=== PATIENT | male | born 1950 | race Caucasian/White ===

== ENCOUNTER → 2023-10-27 06:26 | Day surgery (SDC) | payer OTHER, SELFPAY | LOC: GI 06:26 | PROVIDERS: ATTENDING PHYSICIAN Internal Medicine Gastroenterology | DX: Z12.11 Encounter for screening for malignant neoplasm of colon (principal); Z86.010 Personal history of colon polyps; K57.30 Diverticulosis of large intestine without perforation or abscess without bleeding; K64.8 Other hemorrhoids | CPT/HCPCS: G0105 ==

== ENCOUNTER → 2024-02-02 20:10 | Outpatient (REF) | payer OTHER, SELFPAY | LOC: MRI 20:10 | PROVIDERS: ATTENDING PHYSICIAN Family Medicine | DX: R68.89 Other general symptoms and signs (principal); H53.9 Unspecified visual disturbance; I13.10 Hypertensive heart and chronic kidney disease without heart failure, with stage 1 through stage 4 chronic kidney disease, or unspecified chronic kidney disease; I11.9 Hypertensive heart disease without heart failure; I12.9 Hypertensive chronic kidney disease with stage 1 through stage 4 chronic kidney disease, or unspecified chronic kidney disease | CPT/HCPCS: 70553; A9575 ==

== ENCOUNTER 2024-02-11 14:03 | Emergency (ER) | payer OTHER, SELFPAY ==
[2024-02-11 14:05] VITALS: BP 168/79
--- NOTE | 2024-02-11 14:55 | ED.GENMED ---
History of Present Illness
General
Chief Complaint: Nose Bleed
Time Seen by Provider: 02/11/24 14:38
History of Present Illness
History of Present Illness:
Patient presents to the emergency department with right-sided epistaxis. Started about 2 hours ago. Notes that he may have rubbed his nose prior to this. Bleeding has slowed down at this time. Denies lightheadedness or dizziness
Past History
Past History
ED Past Medical History: CAD, HTN and Hypercholesterolemia
Social History
Tobacco: Former smoker
Alcohol: Occasional
Drug: None
Personal:
Phy Exam
Physical Exam
Physical Exam:
General: No acute distress
Head: NCAT
ENT: No active bleeding visualized. No prior passel of bleeding noted in the anterior nares bilaterally.
Neck, Normal in appearance, no swelling
Respiratory: No Respiratory distress
Abdomen: No distension
Ext: no edema
Neuro: FUENTES, AOx4
Psych: Normal affect
Skin: Normal color
Course
Vital Signs
Initial and Last Documented VS:
Initial Vital Signs
Temp Pulse Resp BP Pulse Ox
98.8 F 74 18 168/79 99
02/11/24 14:05 02/11/24 14:05 02/11/24 14:05 02/11/24 14:05 02/11/24 14:05
Last Documented Vital Signs
Temp Pulse Resp BP Pulse Ox
98.8 F 62 18 163/80 99
02/11/24 14:05 02/11/24 15:27 02/11/24 14:05 02/11/24 15:27 02/11/24 14:05
*Critical Care Note
Total Time (30-74mins, 75-104mins- exclusive of procedures): Not Applicable
ED Attending Note
ED Attending Note
ED Attending Note:
Bleeding has stopped at the time of the ER visit. No culprit vessel identifiable with nasal speculum bilaterally. Small amount of epinephrine soaked gauze placed in right nare to help vasoconstrict
monitored for 2 hours without rebleed
patient requesting discharge
return precautions given
-
Portions of this chart may have been created with voice recognition software.� Occasional wrong word or��sound alike� substitutions may have occurred due to the inherent limitations of voice recognition software.
Discharge Plan
Departure
Patient Disposition: Home (Routine Discharge)
Date of Disposition: 02/11/24
Time of Disposition: 16:20
Patient with high blood pressure during this ER visit?: Yes
Discharge Problem:
Epistaxis, Hypertension
Instructions: Nosebleeds (DC), BLOOD PRESSURE
Prescriptions:
No Action
cholecalciferol (vitamin D3) [Vitamin D3] 1,000 UNIT capsule
1,000 unit PO BID
nitroglycerin 0.4 MG tablet, sublingual
0.4 mg sublingual [id number] PRN (Reason: chest pain) Qty: 25 3RF
tamsulosin 0.4 MG capsule
0.4 mg PO HS Qty: 0 0RF
cranberry extract 200 MG capsule
400 mg PO HS Qty: 0 0RF
prednisone 20 MG tablet
20 mg PO DAILY
Patient Comments:
PATIENT START DATE 04/07/21 #21
glucosamine [id number] 1 EACH tablet
1 tab PO DAILY
irbesartan-hydrochlorothiazide 1 EACH tablet
1 tab PO HS
rosuvastatin 10 MG tablet
10 mg PO QPM
coenzyme [id number] 1 CAP capsule
1 cap PO QPM
acetaminophen [Tylenol Extra Strength] 500 MG tablet
500 mg PO Q4HPRN PRN (Reason: pain) 0RF
lidocaine [Aspercreme (lidocaine)] 1 PATCH adhesive patch,medicated
1 patch S DAILY Qty: 15 0RF
doxycycline hyclate 100 MG capsule
100 mg PO Q12 Qty: 10 0RF
Referrals:
Jose Angel Tarango MD [Family Provider] -
Interventions
Interventions:
*Risk Screen - Suicide Last Done: 02/11/24 15:02
*General Assessment Last Done: 02/11/24 15:02
*Neglect/Abuse Screening Last Done: 02/11/24 15:02
ED-EENT Assessment Last Done: 02/11/24 14:40
Discharge Date and Time
Print Language: FAROESE
[2024-02-11 15:27] VITALS: BP 163/80
[2024-02-11 16:28] VITALS: BP 169/77
== END 2024-02-11 16:29 | disposition home or self-care (01) ==
LOC: EMR 14:03
PROVIDERS: EMERGENCY PHYSICIAN Emergency Medicine; FAMILY PHYSICIAN Family Medicine
DX: R04.0 Epistaxis (principal); I10 Essential (primary) hypertension; I25.10 Atherosclerotic heart disease of native coronary artery without angina pectoris; E78.00 Pure hypercholesterolemia, unspecified; Z87.891 Personal history of nicotine dependence
CPT/HCPCS: 99282

== ENCOUNTER 2024-03-22 10:25 | Emergency (ER) | payer OTHER, SELFPAY ==
--- NOTE | 2024-03-22 12:36 | ED.GENMED ---
History of Present Illness
<Carissa Diallo PA-C - Last Filed: 03/22/24 19:57>
General
Chief Complaint: Nose Bleed
Source: patient
Exam Limitations: none
Time Seen by Provider: 03/22/24 12:36
Nursing documentation reviewed up to this point in time: agreed with
History of Present Illness
History of Present Illness:
This is a 73 y/o male with a hx of CAD, HTN, HLP presenting to the emergency department today with concerns of a nose bleed. Patient states that this started on his right side and shortly after he noticed some bleeding from the left nare as well.
Patient states this started around 2 hours ago. Patient denies any trauma to the nose. Patient states that it started while at a well visit with his primary care physician this morning. Patient states that he has a history of nosebleeds in the
past which required cautery and a history of bleeding requiring balloon packing. He does have a ENT that he follows with with his previous bleeds. Patient does saline spray multiple times a day every day. Patient does take 1 baby aspirin daily
but is on no anticoagulant medication. Patient is any dizziness or lightheadedness. Patient denies any chest pain or shortness of breath.
Past History
<Carissa Diallo PA-C - Last Filed: 03/22/24 19:57>
Past History
ED Past Medical History: CAD, HTN and Hypercholesterolemia
Social History
Tobacco: Former smoker
Alcohol: Occasional
Drug: None
Personal:
Review of Systems
<ALIYA Macias Last Filed: 03/22/24 19:57>
Review of Systems
All Other Systems: ROS reviewed and negative except as documented in HPI and ROS
Phy Exam
<Carissa Diallo PA-C - Last Filed: 03/22/24 19:57>
Physical Exam
Physical Exam:
General: Patient is well appearing and in no acute distress; non-toxic
Skin: Warm and dry, no rashes or lesions
Head: Normocephalic, atraumatic
Eyes: Sclera non-icteric. EOMs intact. PERRLA.
Nose: Dried blood noted in bilateral nares. Small abrasion noted to right anterior nasal passage. No active bleeding. No septal hematoma.
Throat: No blood in posterior pharynx. No pharyngeal erythema.
Cardiac: Regular rate
Psychiatric: Appropriate mood and affect.
Course
<Carissa Diallo PA-C - Last Filed: 03/22/24 19:57>
Orders/Labs/Results
Orders:
Orders
03/22/24 13:34
Vital Signs- Treatment ONCE
Frequency: Once
Vital Signs
Initial and Last Documented VS:
Initial Vital Signs
Pulse BP Pulse Ox
89 156/88 98
03/22/24 13:40 03/22/24 13:40 03/22/24 13:40
Last Documented Vital Signs
Pulse BP Pulse Ox
89 156/88 98
03/22/24 14:48 03/22/24 14:48 03/22/24 13:40
<London Mckeon DO - Last Filed: 03/22/24 13:20>
Orders/Labs/Results
Orders:
Orders
03/22/24 13:34
Vital Signs- Treatment ONCE
Frequency: Once
Vital Signs
Initial and Last Documented VS:
Initial Vital Signs
Pulse BP Pulse Ox
89 156/88 98
03/22/24 13:40 03/22/24 13:40 03/22/24 13:40
Last Documented Vital Signs
Pulse BP Pulse Ox
89 156/88 98
03/22/24 14:48 03/22/24 14:48 03/22/24 13:40
Procedures
<Carissa Diallo PA-C - Last Filed: 03/22/24 19:57>
Nosebleed
Drug treatment: Epinephrine
<London Mckeon DO - Last Filed: 03/22/24 13:20>
Nosebleed
Drug treatment: Neosynephrine
Treatment: local pressure applied and Silver nitrate cautery
Post treatment bleeding: none- good control
<Carissa Diallo PA-C - Last Filed: 03/22/24 19:57>
MDM/Problems Addressed
Differential Diagnosis Includes:
ddx include spontaneous anterior epistaxis, posterior epistaxis, nasal trauma
MDM/Problems Addressed:
Nosebleed:
This is a 73 y/o male with a hx of CAD, HTN, HLP presenting to the emergency department today with concerns of a nose bleed. Patient states that this started on his right side and shortly after he noticed some bleeding from the left nare as well.
Patient states this started around 2 hours ago. Patient denies any trauma to the nose. Patient states that it started while at a well visit with his primary care physician this morning. Patient had pressure applied with clamp for around 45 min-1
hour prior to my evaluation. On exam, he had no active bleeding. No septal hematoma. He did have a small excoriation on the right in which silver nitrate was applied. Discussed continued use of saline and use of bacitracin. Patient requested TXA to
be sent to his pharmacy, discussed how this was not indicated. Patient stable for discharge, patient will follow up with ENT.
Chronic conditions affecting care:
CAD, HLP, HTN,
<Carissa Dialol PA-C - Last Filed: 03/22/24 19:57>
*Critical Care Note
Total Time (30-74mins, 75-104mins- exclusive of procedures): Not Applicable
Data Reviewed
Review of Other/Old Records Reveals: Records (reviewed ER physician documentation from last month where patient was seen for anterior epistaxis )
Source: patient and records
Prescriptions/Medications Considered But Not Given:
n/a
<Carissa Diallo PA-C - Last Filed: 03/22/24 19:57>
Patient Management
Escalation/DeEscalation of care consider admission/obs:
Admit not indicated, patient stable for discharge
ED Attending Note
<Carissa Diallo PA-C - Last Filed: 03/22/24 19:57>
-
Portions of this chart may have been created with voice recognition software.� Occasional wrong word or��sound alike� substitutions may have occurred due to the inherent limitations of voice recognition software.
<London Mckeon DO - Last Filed: 03/22/24 13:20>
ED Attending Note
Patient seen and examined by attending physician: Yes
I performed the substantive portion of visit, reviewed & personally made and approve the management plan that is documented in note by myself or AJIT.: Yes
ED Attending Note:
I have seen and evaluated the patient with a [id number] encounter. I have spoken to the advance practicer provider and involved in the medical history, the physical exam, medical decision making.
Evaluation and management service: agree unless noted differently below.
Results interpretation: agree unless noted differently below.
Focused HPI: 73-year-old male presenting with spontaneous bleeding in his right side of his nose. He is on aspirin. No thinners. He denies trauma
Physical exam: Sitting bed comfortably. Patient was squeezing his nose for prolonged period time. No active bleeding. Excoriation noted to right anterior nasal passage
Medical Decision Making: Silver nitrate placed in the right side of his nose. He tolerated procedure well. No active bleeding
Discharge Plan
Departure
Patient Disposition: Home (Routine Discharge)
Date of Disposition: 03/22/24
Time of Disposition: 13:35
Patient with high blood pressure during this ER visit?: Yes
Condition: Good
Discharge Problem:
Anterior epistaxis
Instructions: Nosebleeds (DC), BLOOD PRESSURE
Prescriptions:
No Action
cholecalciferol (vitamin D3) [Vitamin D3] 1,000 UNIT capsule
1,000 unit PO BID
nitroglycerin 0.4 MG tablet, sublingual
0.4 mg sublingual [id number] PRN (Reason: chest pain) Qty: 25 3RF
tamsulosin 0.4 MG capsule
0.4 mg PO HS Qty: 0 0RF
cranberry extract 200 MG capsule
400 mg PO HS Qty: 0 0RF
prednisone 20 MG tablet
20 mg PO DAILY
Patient Comments:
PATIENT START DATE 04/07/21 #21
glucosamine [id number] 1 EACH tablet
1 tab PO DAILY
irbesartan-hydrochlorothiazide 1 EACH tablet
1 tab PO HS
rosuvastatin 10 MG tablet
10 mg PO QPM
coenzyme [id number] 1 CAP capsule
1 cap PO QPM
acetaminophen [Tylenol Extra Strength] 500 MG tablet
500 mg PO Q4HPRN PRN (Reason: pain) 0RF
lidocaine [Aspercreme (lidocaine)] 1 PATCH adhesive patch,medicated
1 patch S DAILY Qty: 15 0RF
doxycycline hyclate 100 MG capsule
100 mg PO Q12 Qty: 10 0RF
Referrals:
Jose Angel Tarango MD [Family Provider] -
Activity Restrictions/Additional Instructions:
Please return emergency department should you experience a recurrence of your symptoms, dizziness, lightheadedness, chest pain, shortness of breath.
Please refrain from blowing your nose. You can continue to use saline.
Please follow up with your ENT.
Interventions
Interventions:
*Risk Screen - Suicide Last Done: 03/22/24 10:54
*General Assessment Last Done: 03/22/24 10:54
*Neglect/Abuse Screening Last Done: 03/22/24 10:54
*Nursing Disposition Last Done: 03/22/24 14:48
ED-EENT Assessment Last Done: 03/22/24 14:45
Discharge Date and Time
Discharge Date/Time: 03/22/24 14:49
Print Language: ICELANDIC
[2024-03-22 13:40] VITALS: BP 156/88
[2024-03-22 14:48] VITALS: BP 156/88
== END 2024-03-22 14:49 | disposition home or self-care (01) ==
LOC: EMR 10:25
PROVIDERS: EMERGENCY PHYSICIAN Student in an Organized Health Care Education/Training Program; FAMILY PHYSICIAN Family Medicine
DX: R04.0 Epistaxis (principal); I25.10 Atherosclerotic heart disease of native coronary artery without angina pectoris; I10 Essential (primary) hypertension; E78.00 Pure hypercholesterolemia, unspecified; Z79.82 Long term (current) use of aspirin; Z87.891 Personal history of nicotine dependence
CPT/HCPCS: 99283; 30901

== ENCOUNTER → 2024-03-25 13:52 | Outpatient (REF) | payer OTHER, SELFPAY | LOC: HWRAD 13:52 | PROVIDERS: ATTENDING PHYSICIAN Family Medicine; REFERRING PHYSICIAN Specialist | DX: M17.11 Unilateral primary osteoarthritis, right knee (principal) | CPT/HCPCS: 73564 ==